=== PATIENT | male | born 1990 ===

== ENCOUNTER 2017-06-25 14:01 | Emergency (ER) | payer MEDICAID ==
[2017-06-25] MEDS ORDERED: ANAPHYLAXIS KIT 1 EA ONE (14:10)
[2017-06-25] MEDS ORDERED: AMPH20TA18 PO (14:12)
[2017-06-25] MEDS ORDERED: RISP0.5T82 PO (14:12)
[2017-06-25] MEDS ORDERED: METF-410 PO (14:12)
[2017-06-25] MEDS ORDERED: [UNRECOGNIZED DRUG - OTHER] (14:12)
[2017-06-25] MEDS ORDERED: methylPREDNIS SUCC 125 MG/2ML IVP ONE (14:15)
[2017-06-25] MEDS ORDERED: NS(*) 0.9% 1000 ML BAG 1,000 ML IV ONE (14:15)
[2017-06-25] MEDS ORDERED: FAMOTIDINE(*) 20MG/50ML PREMIX 50 ML IVPB ONE (14:15)
[2017-06-25] MEDS ORDERED: diphenhydrAMINE 50 MG/ML VIAL IVP ONE (14:15)
[2017-06-25] MEDS ORDERED: ALBUTEROL 1.25 MG/3ML NEB NEB ONE (14:15)
--- NOTE | 2017-06-25 14:15 | ER Report ---
History and Physical Time Seen By MD: 14:13 Hx. of Stated Complaint: allergic reaction HPI/ROS is a diabetic placed on weekly shot ( ? trulicity ) now having swelling lips and tongue feels like its hard to breathe. 27 year old states he had a weekly injection for his diabetes given to him by his doctor in [place] 3 days ago states that was unsure the name of the medication states that since he's had the injection he felt like he's had some tingling in his lips states that today he felt like his tongue was thick on had some difficulty breathing and tingling in his lips had no treatment at home and came to the emergency room received IM epinephrine on arrival Remainder of the 14 system rev: Yes Allergies: Coded Allergies: No Known Drug Allergies (Unverified , 06/25/17) Home Meds Active Scripts Diphenhydramine Hcl (BENADRYL) 25 Mg Capsule, 25 MG PO Q6H for 3 Days, #30 CAPSULE Prov:RENETTA PEPPER 06/25/17 Prednisone (PREDNISONE) 20 Mg Tablet, 40 MG PO DAILY for 5 Days, #10 TAB Prov:RENETTA PEPPER 06/25/17 Reported Medications [Diabet] No Conflict Check 06/25/17 Metformin Hcl (METFORMIN HCL) 500 Mg Tablet, 1 TAB PO BID, TAB 06/25/17 Amphet Asp/Amphet/D-Amphet (ADDERALL 20 MG TABLET) 20 Mg Tablet, 20 MG PO BID 06/25/17 Risperidone (RISPERDAL) 0.5 Mg Tablet, 0.5 MG PO 06/25/17 Family History of: Other Constitutional Vital Sign - Last 24 Hours 06/25/17 06/25/17 06/25/17 06/25/17 14:13 14:17 14:17 14:29 Temp 98.9 Pulse 84 95 Resp 16 18 B/P (MAP) 150/91 152/98 (116) Pulse Ox 95 95 O2 Delivery Room Air Room Air 06/25/17 06/25/17 14:31 14:36 Pulse 91 79 Pulse Ox 96 95 Physical Exam 27-year-old male is very anxious physical exam HEENT has normocephalic/ atraumatic tympanic membranes are non-reddened throat is non-reddened no angioedema tongue is not swollen lips do not appear to be swollen no stridor lungs are clear to auscultation abdomen is soft bowel sounds 4 moves all extremities Medical Decision Making ED Course/Re-evaluation ED Course Patient is treated for allergic reaction with his subjective symptoms do not note that he said acute distress on arrival is very anxious talk to him about his long car ride suggested getting lab work and EKG to make sure that this isn' t a PE issue explain to him that if we do not [place] with testing that he could as a result of patient became angry stated he needed to leave the emergency room immediately has friends with him states that his plans are to return to [place] and see his primary care physician his states his symptoms are somewhat better with treatment did give him a prescription for prednisone and Benadryl did have him sign out AMA as he did not want to finish treatment plan Re-evaluation Leave AMA understands that worsening of condition could result in Decision to Disposition Date: Jun 25, 2017 Decision to Disposition Time: 14:36 Depart Departure Latest Vital Signs Vital Signs Date Time Temp Pulse Resp B/P (MAP) Pulse Ox O2 Delivery O2 Flow Rate FiO2 06/25/17 14:36 79 95 06/25/17 14:29 152/98 (116) 06/25/17 14:17 Room Air 06/25/17 14:17 18 06/25/17 14:13 98.9 Impression: Primary Impression: Allergic reaction Condition: Improved Disposition: HOME OR SELF-CARE New Scripts Diphenhydramine Hcl (BENADRYL) 25 Mg Capsule 25 MG PO Q6H for 3 Days, #30 CAPSULE Prov: RENETTA PEPPER APRN-C 06/25/17 Prednisone (PREDNISONE) 20 Mg Tablet 40 MG PO DAILY for 5 Days, #10 TAB Prov: RENETTA PEPPER APRN-C 06/25/17 Patient Instructions: General Allergic Reaction (ED) Additional Instructions: We have asked he does state do further testing noted that you have signed out against medical advice if symptoms get worse please return to the emergency room stay with someone carlos alberto see her primary care physician S initiate back to [place] had kidney prescriptions for prednisone 40 mg daily for the next 4 days as well as Benadryl 4 times a day [employer]ALITY DIRECTOR/PA consult with MD: Verbally (did discuss with Dr. Gallegos the patient wanting to leave AMA discussed risk-benefit benefits with patient he still wants to leave with his friends) RENETTA PEPPER Jun 25, 2017 14:14
[2017-06-25 14:29] VITALS: BP 152/98
[2017-06-25] MEDS ORDERED: PRED20TA6 PO (14:35)
[2017-06-25] MEDS ORDERED: DIPH-740 PO (14:35)
[2017-06-25] MEDS ORDERED: LORazepam 2 MG/ML VIAL IVP ONE (14:55)
== END 2017-06-25 15:06 | disposition home or self-care (01) ==
LOC: ER 14:10
DX: T78.40XA Allergy, unspecified, initial encounter (principal)
CPT/HCPCS: 94640; 99283; J1200; J2930; J3490; J7030; J7613; 96361; 96374; 96375